=== PATIENT | male | born 1965 | race Two or more races ===

== ENCOUNTER 2025-02-07 15:41 | Emergency (ER) | payer OTHER ==
[~2025-02-07] VITALS: Ht 162.6 cm; Wt 72.6 kg
[2025-02-07 20:41] LABS: HEMATOCRIT 47.1 % (39.0-48.0); HEMOGLOBIN 16.3 g/dL (13-16.00); MEAN CELL VOLUME 86.6 fL (80.0-100.00); MEAN CORPUSCULAR HGB CONC 34.7 g/dl (32.0-36.0); PLATELET COUNT 157 K/uL (150-450); RED BLOOD COUNT 5.44 M/uL (4.00-6.00); RED CELL DISTRIBUTION WIDTH 13.3 % (11.5-14.5)
[2025-02-07 20:53] LABS: PH,URINE 5.5 (5.0-8.0); URINE APPEARANCE Clear; URINE BILIRRUBIN Negative (NEGATIVE); URINE BLOOD Moderate; URINE COLOR Yellow; URINE GLUCOSE Negative (NEGATIVE); URINE KETONE Negative (NEGATIVE); URINE LEUKOCYTE Negative; URINE NITRATE Negative; URINE PROTEIN Trace (NEGATIVE); URINE UROBILINOGEN 0.2 E.U./dl
[2025-02-07 20:54] LABS: URINE BACTERIA 24.4 uL (0.0-1933); URINE CAST 1.76 uL (0.0-1.40); URINE EPITHELIAL CELLS 10.7 uL (0.0-38.8); URINE RBC 63.6 uL (0.0-20.8)
[2025-02-07 21:34] LABS: ALBUMIN 3.5 gm/dL (3.4-5.0); BILIRUBIN TOTAL 0.4 mg/dL (0.3-1.2); CREATININE SERUM 1.07 mg/dL (0.70-1.30); GFR 70.26; GLOBULINA 4.1 G/DL (2.4-3.5); POTASSIUM 4.52 mEq/L (3.5-5.1); TOTAL PROTEIN 7.6 gm/dL (6.4-8.2)
== END 2025-02-07 22:59 | disposition home or self-care (01) ==
LOC: ER 15:43
PROVIDERS: Preventive Medicine Public Health & General Preventive Medicine
DX: N39.0 Urinary tract infection, site not specified (principal); B96.89 Other specified bacterial agents as the cause of diseases classified elsewhere; R31.9 Hematuria, unspecified